=== PATIENT | female | born 1950 ===

== ENCOUNTER 2020-02-15 05:42 | Day surgery (SDC) | payer OTHER ==
[~2020-02-15 05:42] MED LIST: GLUCOTROL10 MG PO; OMEGA-31000 MG PO; PEPCID AC20 MG PO; ZYRTEC10 M3 PO
[2020-02-15] MEDS ORDERED: MACROBID 100 M100 MG PO (09:08)
[2020-02-15] MEDS ORDERED: CODE1TAB37 PO (09:09)
== END 2020-02-15 12:20 | disposition home or self-care (01) ==
LOC: CIR.AMB 05:42
PROVIDERS: ATTEND Obstetrics & Gynecology Gynecology
DX: N81.11 Cystocele, midline (principal); N81.5 Vaginal enterocele